=== PATIENT | male | born 1980 | race Two or more races ===

== ENCOUNTER 2024-02-10 22:00 | Inpatient (IN) | payer MEDICAID, SELFPAY ==
[2024-02-10 22:01] VITALS: BMI 37.2
--- NOTE | 2024-02-10 22:08 | XR_ITS ---
Examination: Foot, right, 3 views Technique: AP, oblique, lateral views foot, 3 views Date and time of exam: February 10, 2024 1013 hrs. Indications: Sepsis alert, infection redness swelling and pain right first digit 3 months Findings: Marked soft tissue swelling about the first digit Cortical bone destruction at the base of the distal phalanx first digit with widening of the interphalangeal joint No fracture Tiny opacities plantar to the interphalangeal joint first digit and between the soft tissue proximal phalanges first and second digit Impression: Osteomyelitis distal phalanx first digit Suggest MRI foot without contrast follow-up
--- NOTE | 2024-02-10 22:08 | PD.EDRME ---
Rapid Medical Screening Exam RME Arrival date/time: 02/10/24 22:00 43M with no known significant PMH (though blood sugar here was 397 4 years ago) presents to ED with chronic open wound on R foot. Chief Complaint: Skin/Abscess/Foreign Body
[2024-02-10 22:11] VITALS: BP 163/103; PULSE 123; RESP 20; TEMP 39.2; O2SAT 99
--- NOTE | 2024-02-10 22:13 | PC.NURSE ---
sepsis alert called
[2024-02-10 22:22] VITALS: TEMP 39.2
[2024-02-10] MEDS: ACETAMINOPHEN 500 MG TABLET 1000 MG PO (22:22)
[2024-02-10] MEDS: SODIUM CHLORIDE 0.9% 1000 ML 1,000 ML 999 ML IV (22:35)
[2024-02-10 22:53] LABS: Lactate (Lactic Acid) 3.3 mMol/L (0.4-2.0)
[2024-02-10 22:55] LABS: Basophils % (Auto) 0 % (0-2.5); Eosinophils # (Auto) 0.1 Thou/mm3 (0.0-0.5); Eosinophils % (Auto) 1 % (0-10); Hematocrit 35.1 % (41.0-53.0); Hemoglobin 11.6 g/dL (13.5-16.0); Immature Granulocytes % (Auto) 0 % (0-0); Immature Granulocytes Auto 0.03 Thou/mm3 (0.00-0.00); Lymphocytes # (Auto) 1.1 Thou/mm3 (1.0-4.8); Lymphocytes % (Auto) 12 % (10-50); Mean Corpuscular Hemoglobin 27.3 pg (25.0-35.0); Mean Corpuscular Volume 83 fL (80-100); Monocytes # (Auto) 0.4 Thou/mm3 (0.0-0.8); Monocytes % (Auto) 5 % (0-12); Neutrophils # (Auto) 7.8 Thou/mm3 (1.8-7.7); Neutrophils % (Auto) 82 % (37-80); Nucleated Red Blood Cell % 0 /100 WBC (0); Platelet Count 314 Thou/mm3 (140-440); RDW Standard Deviation 39.2 fL (35.1-43.9); Red Blood Count 4.25 Miln/mm3 (4.50-5.90); White Blood Count 9.4 Thou/mm3 (3.8-10.6)
--- NOTE | 2024-02-10 22:55 | EDNOTE_ITS ---
ED Skin Abcess FB-RME/HPI General Chief complaint: Skin/Abscess/Foreign Body Stated complaint: OPEN WOUND RIGHT BIG TOE Time Seen by Provider: 02/10/24 22:48 Arrival date/time: 02/10/24 22:00 RME / HPI RME / HPI narrative: 02/10/24 22:00 43M with no known significant PMH (though blood sugar here was 397 4 years ago) presents to ED with chronic open wound on R foot. ---- Dr. Montes's Main ED Evaluation: 43yo male with pmhx HTN, DM presents to the ED for a chief complaint of an open wound to his right foot. Patient states he's had a chronic wound to his right foot, reporting it recently started opening, an d having drainage and swelling. He reports having a fever and chills. Denies any N/V/D, dysuria or any other associated symptoms. No known allergies. Related Data Home Medications ?Medication ?Instructions ?Recorded ?Confirmed No Known Home Medications 07/14/19 02/11/24 Allergies Allergy/AdvReac Type Severity Reaction Status Date / Time No Known Allergies Allergy Verified 02/11/24 02:53 Review of Systems Review of Systems Systems Reviewed: All systems reviewed, normal except as documented Past Medical History Past Medical History NEUROLOGIC: Positive Neurological Disorders (Vertigo) CARDIAC: Positive Hypertension; Negative Congestive Heart Failure RESPIRATORY: Negative Chronic Obstructive Pulmonary Disease (COPD) GENITOURINARY: Negative Renal Disease ENDOCRINE: Positive Diabetes Mellitus Type 2; Negative Diabetes Mellitus Type 1 Social History SMOKING STATUS: Never smoker ED Exam Narrative Physical exam: GENERAL APPEARANCE: alert and oriented x 4, well-developed, well-nourished, no acute distress VITALS: All vitals were reviewed and the pulse ox is 99% on room air, which is normal according to my interpretation. HEENT: Normocephalic, atraumatic; pupils equal, round, reactive to light; EOMI; mucous membranes pink, moist; oropharynx clear NECK: Supple LUNGS: CTABL; no wheezes, no rales, no rhonchi HEART: Regular rate, regular rhythm; normal S1, S2; no murmurs ABDOMEN: non distended; normal BS; soft, no tenderness, no guarding, no rebound; no masses, no organomegaly, no hernia BACK: no CVA tenderness EXTREMITIES: atraumatic; no edema NEUROLOGIC: awake; alert and oriented x4; cranial nerves II-XII grossly intact; no focal sensory or motor deficits PSYCHIATRIC: appropriate mood and affect SKIN: warm, dry, normal color; no rashes Course Course Course Narrative: 2212: Sepsis alert initiated. Orders made at this time are congruent with ED Adult Sepsis Order List. Re-evaluation is to be completed. 2234: NS IVF started. 2355: Sepsis reassessment performed consisting of lab review, vitals, physical exam including auscultation of heart, lungs, and visual evaluation of capillary refills, mucosal membranes and extremities. Quality Measures Possible source: bone/joint, skin/soft tissue and wound Blood cultures ordered: yes Antibiotic ordered: Yes Pertinent labs: 02/10/24 22:38 Lactic Acid 3.3 H mMol/L (0.4-2.0) Procalcitonin 0.05 ng/ml (0.0-0.49) sepsis Orders Category Date Time Status Insert IV NOW Care 02/10/24 22:13 Active XR foot comp RT min 3V Stat Exams 02/10/24 22:08 Completed A1C [Glycohemoglobin w (eAG)] Stat Lab 02/10/24 22:38 Completed Blood Culture (Lab) Stat Lab 02/10/24 22:38 Received CBC Stat Lab 02/10/24 22:38 Completed CMP [Comprehensive Metabolic Panel] Stat Lab 02/10/24 22:38 Completed CRP [C-Reactive Protein] Stat Lab 02/10/24 22:38 Completed ESR [Sed Rate (ESR)] Stat Lab 02/10/24 22:38 Completed Lactate (Lactic Acid) Stat Lab 02/10/24 22:38 Completed Procalcitonin Stat Lab 02/10/24 22:38 Completed Acetaminophen Tab [Tylenol ES Tab] Med 02/10/24 22:13 Discontinued 1,000 mg PO X1 ONE Piper/Tazo 3.375 gm [Zosyn] Med 02/10/24 22:49 Discontinued 3.375 gm in 50 ml IV X1 Sodium Chloride 0.9% 1000 ml [Ns] 1,000 ml Med 02/10/24 22:13 Discontinued IV 999 mls/hr Vancomycin Inj 1,000 mg Med 02/10/24 22:49 Discontinued Sodium Chloride 0.9% 250 ml [Ns] 250 ml IV X1 Vital Signs Vital signs: Vital Signs Temperature 102.5 F H 02/10/24 22:11 Pulse Rate 123 H 02/10/24 22:11 Respiratory Rate 20 02/10/24 22:11 Blood Pressure 163/103 H 02/10/24 22:11 Pulse Oximetry (%) 99 02/10/24 22:11 Oxygen Delivery Method Room Air 02/10/24 22:11 Skin / Abscess / Foreign Body Patient data External records reviewed:: [facility] previous records (Per chart review, patient has no relevant previous ED visits or admissions to this facility.) Clinical information provided by:: patient Social determinants that could affect healthcare access:: none Patient has the following chronic illnesses:: HTN, DM How is presenting disease/condition affected by chronic disease/condition?: exacerbated by Evaluation data The following diagnostics were reviewed and interpreted by me:: lab results and radiology exam(s) Lab and/or radiology exams considered but not ordered:: none Interpretation Summary: WBC count is normal at 9.4, Lactate is elevated at 3.3, Glucose is elevated at 353, A1C is elevated at 12.4, CRP is elevated at 4.1, Procalcitonin is normal at 0.5, Sed Rate is elevated at 103, according to my interpretation. ---- [facility] Report Signed Patient: BRANDEN TRUJILLO Record#: [id number] Birthdate: 1980 Age/Sex: 43 / M Location: [facility] Attending Dr: Ordering Physician: Ishmael Ramos PA-C Date of Service: 02/10/24 Procedure(s): XR foot comp RT min 3V Accession Number(s): [id number] cc: Jay Figueroa MD; Ishmael Ramos PA-C~ Examination: Foot, right, 3 views Technique: AP, oblique, lateral views foot, 3 views Date and time of exam: February 10, 2024 1013 hrs. Indications: Sepsis alert, infection redness swelling and pain right first digit 3 months Findings: Marked soft tissue swelling about the first digit Cortical bone destruction at the base of the distal phalanx first digit with widening of the interphalangeal joint No fracture Tiny opacities plantar to the interphalangeal joint first digit and between the soft tissue proximal phalanges first and second digit Impression: Osteomyelitis distal phalanx first digit Suggest MRI foot without contrast follow-up Dictated By: Jay Figueroa MD Signed By: <Electronically signed by Jay Figueroa MD in OV> 02/10/24 2342 Foot x-ray interpreted by me: Bony destruction distal phalanx first toe, soft tissue swelling, soft tissue defect Medications / Prescriptions Medications or Prescriptions considered but not ordered:: none Medication administrations:: Medication Administration History Acetaminophen (Acetaminophen 325 Mg Tablet) 650 mg PO Q6H PRN PRN Reason: Fever >101.5 Stop: 03/12/24 00:18 Hydrocodone Bitart/Acetaminophen (Hydrocodone/Apap 5/325 Tablet) 1 tab PO Q4HR PRN PRN Reason: PAIN SCALE 4-6 (Moderate Stop: 02/16/24 00:18 Amlodipine Besylate (Amlodipine Besylate 5 Mg Tablet) 10 mg PO QDAY [facility] Stop: 03/12/24 08:59 Dextrose (Dextrose 50%-Water Inj 50 Ml Syringe) 25 ml IV Q15MIN PRN PRN Reason: BG 50-70 responsive npo pt Stop: 03/12/24 00:21 Dextrose (Dextrose 50%-Water Inj 50 Ml Syringe) 50 ml IV Q15MIN PRN PRN Reason: BG <50 OR BG <70 & pt unresponsive Stop: 03/12/24 00:21 Enoxaparin Sodium (Enoxaparin Sod Inj 40 Mg/0.4 Ml Syringe) 40 mg SC QDAY [facility] Stop: 02/25/24 08:59 Glucagon (Glucagon Inj 1 Mg Vial) 1 mg IM Q15MIN PRN PRN Reason: BG <70, and no IV access Sodium Chloride (Ns) 1,000 mls @ 75 mls/hr IV .[id number] [facility] Stop: 03/12/24 00:29 Last Admin: 02/11/24 03:20 Dose: 75 mls/hr Documented By: Infusion: 02/11/24 03:20 Dose: Infused Documented By: Admin: 02/11/24 01:06 Dose: 75 mls/hr Documented By: GHASSAN Piperacillin/Tazobactam/Dextrose (Zosyn) 3.375 gm in 50 mls @ 12.5 mls/hr IV Q8HR [facility] Stop: 02/18/24 05:59 Insulin Glargine (Insulin Glargine (Lantus) 5 Unit/0.05 Ml (Per 5 Units)) 20 unit SC QDAY [facility] Stop: 03/12/24 08:59 Insulin Human Regular (Insulin Hum Regular 1 Unit/0.01 Ml (Per Unit)) 0 unit SC ACHS [facility]; Protocol Stop: 03/12/24 07:29 Pharmacy Consult (Pharmacy To Dose Vancomycin) 1 each IV QDAY [facility] Stop: 03/12/24 08:59 Discontinued Medications Acetaminophen (Acetaminophen 500 Mg Tablet) 1,000 mg PO X1 ONE Stop: 02/10/24 22:14 Last Admin: 02/10/24 22:22 Dose: 1,000 mg Documented By: GHASSAN Sodium Chloride (Ns) 1,000 mls @ 999 mls/hr IV .Q1H1M ONE Stop: 02/10/24 23:13 Last Infusion: 02/10/24 23:26 Dose: Infused Documented By: Admin: 02/10/24 22:35 Dose: 999 mls/hr Documented By: GHASSAN Vancomycin HCl 1,000 mg/ (Sodium Chloride) 250 mls @ 250 mls/hr IV X1 ONE Stop: 02/10/24 23:48 Last Infusion: 02/11/24 00:30 Dose: Infused Documented By: Admin: 02/10/24 23:26 Dose: 250 mls/hr Documented By: GHASSAN Piperacillin/Tazobactam/Dextrose (Zosyn) 3.375 gm in 50 mls @ 100 mls/hr IV X1 ONE Stop: 02/10/24 23:18 Last Infusion: 02/10/24 23:26 Dose: Infused Documented By: Admin: 02/10/24 22:56 Dose: 100 mls/hr Documented By: GHASSAN Influenza Virus Vaccine Quadrival (Influenza Virus Quadrivalent 0.5 Ml Syringe) 0.5 ml IMi .ONCE ONE Stop: 02/11/24 02:57 see above Consultations Consultation(s) initiated? (list below): Yes Consultation #1 (Physician, Specialty, Details): Discussed case with [Dr. Rojas] from Hospitalist service regarding admission. Discussed patients ED course, exam findings, labs, and radiology results. The Hospitalist [agrees] to accept the patient for admission. Diagnosis Skin/Abscess Differential Diagnosis: cellulitis and other (abscess, osteomyelitis, fracture) Most likely diagnosis given after review of the tests above:: as below Admission Indicated Admission indicated?: indicated Admission Request Was there a request for admission?: Yes Admission Attestation Admission request attestation: Discussed case with [] from Hospitalist service regarding admission. Discussed patients ED course, exam findings, labs, and radiology results. The Hospitalist [agrees,declines] to accept the patient for admission. Disposition Plan Disposition Plan: Admit Critical Care Time Critical Care Time Critical Care Time: Yes Total Critical Care Time (min.): 45 Attestation: The high probability of sudden, clinically significant deterioration in the patient?s condition required the highest level of my preparedness to intervene urgently. The services I provided to this patient were to treat and/or prevent clinically significant deterioration. Services included the following: chart data review, reviewing nursing notes and/or old charts, documentation time, tanning consultant collaboration regarding findings and treatment options, medication orders and management, direct patient care, vital sign assessments and ordering, interpreting and reviewing diagnostic studies and lab tests. Aggregate critical care time includes only time during which I was engaged in work directly related to the patient?s care, as described above, whether at bedside or elsewhere in the Emergency Department. It did not include time spent performing other reported procedures or the services of residents, students, nurses or physician assistants. Discharge Plan Plan Patient Disposition: Admit Acute Care w/in Hospital Disposition Comment: Dr. Rojas - [facility] Problem List Clinical Impression: Osteomyelitis, Diabetic foot ulcer
[2024-02-10] MEDS: PIPER/TAZO 3.375 GM 3.375 GM/50 ML BAG IV (22:56)
[2024-02-10] MEDS: Vancomycin Inj 1,000 MG in SODIUM CHLORIDE 0.9% 250 ML 250 ML 250 MG IV (23:26)
[2024-02-10 23:28] LABS: Sed Rate (ESR) 103 mm/hr (0-15)
[2024-02-10 23:29] VITALS: BP 152/96; PULSE 109; RESP 19; TEMP 37.4; O2SAT 97
[2024-02-10 23:48] LABS: Procalcitonin 0.05 ng/ml (0.0-0.49)
[2024-02-11] VITALS (11 sets, daily range): BP systolic 123–165; BP diastolic 89–107; PULSE 71–96; RESP 16–20; TEMP 36.1–37.1; O2SAT 94–98; BMI 34.8; BMI 34.9
[2024-02-11 00:04] LABS: Glucose Estimated Average 309 mg/dL (80-131); Hemoglobin A1C 12.4 % Hgb (4.8-6.0)
[2024-02-11 00:10] LABS: Alanine Aminotransferase 12 U/L (10-49); Albumin, Serum 3.9 gm/dL (3.5-5.0); Albumin/Globulin Ratio 0.9 (1.2-2.2); Alkaline Phosphatase 105 U/L (46-116); Anion Gap 7 (7-16); Aspartate Amino Transferase 15 U/L (0-34); BUN/Creatinine Ratio 14 Ratio (12-20); Bilirubin,Total 0.3 mg/dL (0.3-1.2); Blood Urea Nitrogen 15 mg/dL (9-23); C-Reactive Protein 4.1 mg/dL (0.0-0.9); Calcium 9.5 mg/dL (8.3-10.6); Calcium (Corrected) 9.6 mg/dL (8.5-10.1); Carbon Dioxide 24.2 mMol/L (20.0-31.0); Chloride 98 mMol/L (98-107); Creatinine (Component) 1.1 mg/dL (0.6-1.3); Estimated Creatinine Clearance 105.8 mL/min (>60); Globulin 4.5 gm/dL (2.3-3.5); Glucose 353 mg/dL (74-106); Osmolality,Calculated 273 (275-295); Potassium 4.1 mMol/L (3.4-5.1); Sodium 129 mMol/L (136-145); Total Protein 8.4 gm/dL (5.7-8.2); eGFR > 60 See Note
[2024-02-11] MEDS: SODIUM CHLORIDE 0.9% 1000 ML 1,000 ML 75 ML IV ×2 (01:06→03:20)
--- NOTE | 2024-02-11 01:14 | PC.NURSE ---
Pt given snacks and water. Tolerating well.
--- NOTE | 2024-02-11 01:15 | PD.RESHP ---
Documentation for date of: 02/11/24 HPI History of Present Illness History of present illness: 43-year-old male patient with significant medical history for hypertension came into ED for right foot pain. Patient states that he had chronic right foot ulcer since last year which had started to heal. In August patient started having ingrown toenail which was taken out after which patient started having inflammation of the right toe. Patient had gone to [facility] at that time and was given amoxicillin for a week which she completed. Patient never recovered from the swelling and over the last 30 days has progressed and started having discharges and increased pain leading to patient come to the ED. Patient has also been endorsing in the last few days subjective fever and chills which she was attributing it to his work around the house. Patient denied nausea, vomiting, diarrhea, dysuria, chest pain or other associate symptoms. In ED patient was found to be hypertensive with BP 163/103, tachycardic with a pulse of 123 and febrile with a temperature of 102.5 F. CBC was significant for Hgb 11.6, HCT 35.1 and MCV 83. Labs indicated NA 129, ESR 103, glucose 353, Hgb A1c of 12.4% (patient states that he did not know he had diabetes until today), lactic acid 3.3, CRP 4.1 and negative procalcitonin of 0.05. Foot x-ray indicated osteomyelitis distal phalanx first digit. Patient was given fluids per sepsis protocol, started on Vanco and Zosyn and will be admitted for osteomyelitis. Medical Hx: Hypertension Medications: ? Lisinopril Surgeries: None Allergies: None Social Hx: Social alcohol drinker, current tobacco chewing, smokes marijuana and meth (last use 1 month ago) CODE STATUS: Full code Review of Systems Review of Systems Systems Reviewed: All systems reviewed, normal except as documented Exam Vital Signs Temp Pulse Resp BP Pulse Ox O2 Del Method 99.4 F 95 18 147/90 H 98 Room Air 02/10/24 23:29 02/11/24 01:09 02/11/24 01:09 02/11/24 01:09 02/11/24 01:09 02/11/24 01:09 Narrative Exam Constitutional: Well-developed, well-nourished, in no acute distress, lying in bed. HEENT: NCAT, EOMI, reactive round pupils b/l, patent nares b/l, moist mucous membranes . Lung: CTAB, no wheezing, no rhonchi. Heart: Regular S1S2, no murmurs, gallops, or rubs. Abdomen: Soft, obese, non-tender, bowel sounds present throughout. Extremities: No cyanosis, clubbing, right foot edema up to ankle, diminished LE pulses present b/l. Neurologic: No focal sensory or motor deficits noted, AOx3, appropriate affect. Skin: Right diabetic foot ulcer at plantar aspect with discharges and erythema of first digit, dorsal aspect of first right digit gangrenous looking. Results: Labs 02/10/24 22:38 02/10/24 22:38 Labs: Short CBC 02/10/24 Range/Units 22:38 WBC 9.4 (3.8-10.6) Thou/mm3 Hgb 11.6 L (13.5-16.0) g/dL Hct 35.1 L (41.0-53.0) % Plt Count 314 (140-440) Thou/mm3 BMP 02/10/24 22:38 Sodium 129 L Potassium 4.1 Chloride 98 Carbon Dioxide 24.2 BUN 15 Creatinine 1.1 Glucose 353 H Calcium 9.5 Liver Function 02/10/24 Range/Units 22:38 Total Bilirubin 0.3 (0.3-1.2) mg/dL AST 15 (0-34) U/L ALT 12 (10-49) U/L Alkaline Phosphatase 105 (46-116) U/L Albumin 3.9 (3.5-5.0) gm/dL Quality Measures Quality Measures sepsis Current suspected stage: sepsis Possible source: bone/joint Blood cultures ordered: yes Antibiotic ordered: Yes Medications Home Medications and Allergies Home Medications ?Medication ?Instructions ?Recorded ?Confirmed ?Type No Known Home Medications 07/14/19 07/14/19 History Allergies Allergy/AdvReac Type Severity Reaction Status Date / Time No Known Allergies Allergy Verified 07/14/19 14:38 Visit Medications Acetaminophen (Acetaminophen 325 Mg Tablet) 650 mg PO Q6H PRN PRN Reason: Fever >101.5 Stop: 03/12/24 00:18 Hydrocodone Bitart/Acetaminophen (Hydrocodone/Apap 5/325 Tablet) 1 tab PO Q4HR PRN PRN Reason: PAIN SCALE 4-6 (Moderate Stop: 02/16/24 00:18 Amlodipine Besylate (Amlodipine Besylate 5 Mg Tablet) 10 mg PO QDAY [facility] Stop: 03/12/24 08:59 Dextrose (Dextrose 50%-Water Inj 50 Ml Syringe) 25 ml IV Q15MIN PRN PRN Reason: BG 50-70 responsive npo pt Stop: 03/12/24 00:21 Dextrose (Dextrose 50%-Water Inj 50 Ml Syringe) 50 ml IV Q15MIN PRN PRN Reason: BG <50 OR BG <70 & pt unresponsive Stop: 03/12/24 00:21 Enoxaparin Sodium (Enoxaparin Sod Inj 40 Mg/0.4 Ml Syringe) 40 mg SC QDAY [facility] Stop: 02/25/24 08:59 Glucagon (Glucagon Inj 1 Mg Vial) 1 mg IM Q15MIN PRN PRN Reason: BG <70, and no IV access Sodium Chloride (Ns) 1,000 mls @ 75 mls/hr IV .[id number] [facility] Stop: 03/12/24 00:29 Last Admin: 02/11/24 01:06 Dose: 75 mls/hr Piperacillin/Tazobactam/Dextrose (Zosyn) 3.375 gm in 50 mls @ 12.5 mls/hr IV Q8HR [facility] Stop: 02/18/24 05:59 Insulin Glargine (Insulin Glargine (Lantus) 5 Unit/0.05 Ml (Per 5 Units)) 20 unit SC QDAY [facility] Stop: 03/12/24 08:59 Insulin Human Regular (Insulin Hum Regular 1 Unit/0.01 Ml (Per Unit)) 0 unit SC [facility]; Protocol Stop: 03/12/24 07:29 Pharmacy Consult (Pharmacy To Dose Vancomycin) 1 each IV QDAY [facility] Stop: 03/12/24 08:59 Discontinued Medications Acetaminophen (Acetaminophen 500 Mg Tablet) 1,000 mg PO X1 ONE Stop: 02/10/24 22:14 Last Admin: 02/10/24 22:22 Dose: 1,000 mg Sodium Chloride (Ns) 1,000 mls @ 999 mls/hr IV .Q1H1M ONE Stop: 02/10/24 23:13 Last Infusion: 02/10/24 23:26 Dose: Infused Vancomycin HCl 1,000 mg/ (Sodium Chloride) 250 mls @ 250 mls/hr IV X1 ONE Stop: 02/10/24 23:48 Last Infusion: 02/11/24 00:30 Dose: Infused Piperacillin/Tazobactam/Dextrose (Zosyn) 3.375 gm in 50 mls @ 100 mls/hr IV X1 ONE Stop: 02/10/24 23:18 Last Infusion: 02/10/24 23:26 Dose: Infused Assessment & Plan Plan 43-year-old male patient with significant medical history for hypertension came into ED for right foot pain. Patient found to be diabetic with A1c of 12.4, elevated ESR and CRP and x-ray indicative of right first digit osteomyelitis. #Sepsis due to #Osteomyelitis #Cellulitis #Diabetic foot ulcer Patient with hemoglobin A1c of 12.4% with chronic right foot ulcer Vitals and labs significant for fever 102.5 F, ESR 103, CRP 4.1, lactic acid 3.3 On admission patient complaining of erythema, discharge, swelling and pain X-ray indicated of osteomyelitis Patient given IVF fluids bolus per sepsis protocol in ED Plan: ? Start Vanco and Zosyn ? MRI of right foot ordered ? General Surgeon Dr. Wheatley consulted, recommendations are greatly appreciated ? Wound care ordered ? Maintenance IVF at 75 cc/h ? Acetaminophen for fever and pain ? Blood cultures ordered ? Follow-up CBC #Uncontrolled diabetes, newly diagnosed #Hyperglycemia On admission patient with blood glucose of 309 and A1c of 12.4% Plan: ? Start insulin glargine 20 units daily ? Start sliding scale insulin plus Accu-Cheks ? Diabetic education ? Maintain blood glucose of 140-180 ? Patient will benefit from CGM ? Lipid panel and TSH ordered ? Follow-up CMP #Hypertension Patient states he has hypertension but is noncompliant with his medication On admission patient with BP 163/103 Plan: ? Start amlodipine 10 mg daily Health Maintenance Dispo: Patient admitted for osteomyelitis, MRI ordered, general surgeon consulted Diet: Low carb consistent DVT/PPx: Lovenox GI ppx: None Lines: PIV Code Status: Full code This patient care was discussed with my attending Dr. Bob Cooley MD PGY-2 Disclaimer: Minor errors in regional ehs manager may be present since this note was dictated by speech recognition software. Attending Provider Attestation/Addendum Pt was evaluated and plan formulated together with the housestaff team. I have reviewed the residents note above and agree with most of its content. Please refer to the residents note for additional details.
[2024-02-11 01:51] LABS: Reflex Lactate? Y
[2024-02-11 02:07] LABS: Lactic Acid, 3 HR 1.2 mMol/L (0.4-2.0)
[2024-02-11 05:29] LABS: Basophils % (Auto) 0 % (0-2.5); Eosinophils # (Auto) 0.1 Thou/mm3 (0.0-0.5); Eosinophils % (Auto) 2 % (0-10); Hematocrit 32.1 % (41.0-53.0); Hemoglobin 10.5 g/dL (13.5-16.0); Immature Granulocytes % (Auto) 0 % (0-0); Immature Granulocytes Auto 0.02 Thou/mm3 (0.00-0.00); Lymphocytes # (Auto) 1.9 Thou/mm3 (1.0-4.8); Lymphocytes % (Auto) 23 % (10-50); Mean Corpuscular HGB Conc 32.7 g/dl (31.0-37.0); Mean Corpuscular Hemoglobin 27.1 pg (25.0-35.0); Mean Corpuscular Volume 83 fL (80-100); Monocytes # (Auto) 0.8 Thou/mm3 (0.0-0.8); Monocytes % (Auto) 9 % (0-12); Neutrophils # (Auto) 5.4 Thou/mm3 (1.8-7.7); Neutrophils % (Auto) 65 % (37-80); Nucleated Red Blood Cell % 0 /100 WBC (0); Platelet Count 267 Thou/mm3 (140-440); RDW Standard Deviation 39.4 fL (35.1-43.9); Red Blood Count 3.88 Miln/mm3 (4.50-5.90); White Blood Count 8.2 Thou/mm3 (3.8-10.6)
[2024-02-11 05:46] LABS: Anion Gap 4 (7-16); BUN/Creatinine Ratio 15 Ratio (12-20); Blood Urea Nitrogen 12 mg/dL (9-23); Calcium 8.8 mg/dL (8.3-10.6); Carbon Dioxide 28.9 mMol/L (20.0-31.0); Cardiac Risk Estimate 3.8 RATIO (4.0-6.7); Chloride 99 mMol/L (98-107); Cholesterol 88 mg/dL (132-200); Creatinine (Component) 0.8 mg/dL (0.6-1.3); Glucose 350 mg/dL (74-106); HDL Cholesterol 23 mg/dL (40-60); LDL Cholesterol,Calculated 46 mg/dL (0-130); Osmolality,Calculated 278 (275-295); Potassium 3.7 mMol/L (3.4-5.1); Sodium 132 mMol/L (136-145); Thyroid Stimulating Hormone 2.81 uIU/mL (0.55-4.78); Triglycerides 97 mg/dL (30-150); eGFR > 60 See Note
[2024-02-11] MEDS: PIPER/TAZO 3.375 GM 3.375 GM/50 ML BAG IV (05:59)
[2024-02-11] MEDS: INSULIN HUM REGULAR 1 UNIT/0.01 ML (PER UNIT) SC (07:16)
[2024-02-11] MEDS: VANCOMYCIN/D5W 1,250 MG IVPB 250 ML 120 MG IV ×3 (07:54→21:31)
[2024-02-11] MEDS: INSULIN GLARGINE (Lantus) 5 UNIT/0.05 ML (PER 5 UNITS) 20 UNIT SC ×2 (08:00→20:38)
[2024-02-11] MEDS: ENOXAPARIN SOD INJ 40 MG/0.4 ML SYRINGE SC (08:00)
[2024-02-11] MEDS: amLODIPine BESYLATE 5 MG TABLET 10 MG PO (08:00)
--- NOTE | 2024-02-11 11:18 | PC.SS ---
Follow up note: Pt is on IV antibiotic. Pt will return home upon dc.
[2024-02-11] MEDS: INSULIN LISPRO (AdmeLOG) 1 UNIT/0.01 ML UNIT SC ×3 (11:38→20:38)
--- NOTE | 2024-02-11 12:09 | XR_ITS ---
Examination: Ultrasound-guided needle placement right brachial vein. Dual-lumen central line placement (PICC line). Fluoroscopy AP chest, portable, single view Exam date and time:February 11, 2024 1339 hours INDICATIONS: Need for long-term intravenous antibiotic therapy for osteomyelitis A timeout was completed verifying correct patient, procedure, site, positioning Informed consent provided Technique: The patient's site was prepped and draped in sterile fashion. Maximum Sterile Barrier Technique used including cap, mask, sterile gown, sterile gloves, and sterile full body drape. If ultrasound technique used: sterile gel and sterile probe covers. Hand Hygiene performed using proper scrub, soap and water, or alcohol-based hand rub. Site right portable apparatus utilized to confirm patency of the right brachial vein Utilizing ultrasonographic guidance successful 21-gauge needle puncture into the right brachial vein. Ultrasound images recorded and stored. 5 cc 1% lidocaine administered for local anesthetic. Successful micropuncture with a 21-gauge needle is performed. 0.18 wire guide is then introduced into the SVC under fluoroscopic guidance. Dual-lumen catheter dilator is then introduced, followed by the catheter in the SVC and proper position under fluoroscopic guidance. Successful aspiration of blood and flushing with heparinized saline is then performed in the 2 venous limbs. The catheter sutured in place. Findings: Under fluoroscopy, the tip of the catheter is in good position in the vena cava. Portable chest x-ray, post line placement is ordered. Estimated blood loss 3 cc The patient tolerated the procedure well and was in stable and satisfactory condition at completion of the procedure Impression: Successful ultrasound-guided needle placement right brachial vein Successful placement of dual lumen central line, percutaneous Fluoroscopy 0.2 minutes radiation dose 2.29 milligray 1 spot fluoroscopic chest film. AP chest completion procedure demonstrates satisfactory position central line. May use central line.
--- NOTE | 2024-02-11 12:28 | ESCONSULT_ITS ---
HPI Consult details Consult date: 02/11/24 Reason for consultation narrative: Right first toe osteomyelitis History of present illness: 43-year-old male with poorly controlled diabetes has had chronic ulceration of right foot at the lateral aspect of first toe. Patient states that ulceration has been healing lately. However, he has developed an ingrown nail that he cath after which he started developing swelling, tenderness and erythema of right first toe. X-ray revealed osteomyelitis. Patient was started on IV antibiotics and admitted for further management. Review of Systems Constitutional Constitutional: Denies chills and Denies fever(s) Cardiovascular Cardiovascular: Denies chest pain Respiratory Respiratory: Denies cough Gastrointestinal Gastrointestinal: Denies abdominal pain, Denies nausea and Denies vomiting Hematologic/Lymphatic Hematologic/Lymphatic: Denies easy bleeding and Denies easy bruising Past Medical History Surgical History OTHER SURGICAL HX: No surgeries in the past Social History SMOKING STATUS: Never smoker SUBSTANCE USE: does not use ALCOHOL: Current Meds Home Medications and Allergies Home Medications ?Medication ?Instructions ?Recorded ?Confirmed ?Type No Known Home Medications 07/14/19 02/11/24 History Allergies Allergy/AdvReac Type Severity Reaction Status Date / Time No Known Allergies Allergy Verified 02/11/24 02:53 Exam Vital Signs Temp Pulse Resp BP Pulse Ox O2 Del Method 97.6 F 79 19 144/98 H 97 Room Air 02/11/24 12:00 02/11/24 12:00 02/11/24 12:00 02/11/24 12:00 02/11/24 12:00 02/11/24 12:00 Constitutional Constitutional: no acute distress Routine Extremities Exam Comments: He has palpable dorsalis pedis and posterior tibial pulses. He has significant edema and mild erythema of right first toe. There is no evidence of fluctuance or purulent drainage at this time Assessment & Plan Problem List (1) Osteomyelitis of toe of right foot: Status: Acute Plan Options including amputation of right first toe versus antibiotic treatment discussed with the patient. He wishes to defer surgery and proceed with antibiotic treatment. I recommended following with a precision jig grinder upon discharge
[2024-02-11] MEDS: CEFEPIME INJ 2 GM in SODIUM CHLORIDE 0.9% (P) 50 ML IV ×2 (12:43→21:29)
--- NOTE | 2024-02-11 13:15 | PC.NURSE ---
Pt.out for Picc line insertion.
[2024-02-11] MEDS: HEPARIN SOD LOCK SYR 100 UNIT/ML 500 UNIT STFIELD (14:11)
[2024-02-11] MEDS: LIDOCAINE INJ PF 1% 30 ML VIAL INFL (14:12)
--- NOTE | 2024-02-11 14:39 | PC.NURSE ---
Addendum entered by Tori Preston RN 02/11/24 15:07: procedure in time:1355 Time Out: 1411 Start time: 1412 End time 117. Original Note: patient tolerated picc line insertion well. a double lumen picc line on the right branchial vein 43cm in length inserted. vitals stable. report given to charline jackson. dressing clean dry and intact.
--- NOTE | 2024-02-11 15:06 | PC.SS ---
SS met with patient regarding his d/c plan. Pt is alert/oriented. Pt was admitted for Oteomyelitis. Pt confirmed demographic and contact information is correct on facesheet. Pt resides with his uncles. Pt ambulates independently without assistance or DME. Pt is ok with all ADLs. Patient?s pharmacy of choice is [facility] [address]. Pt named his sister, Kristie Cisneros medical decision maker if he is unable. Patient?s choice is to return home upon d/c. Pt does not have an advance directive, SS offered, and pt declined. Pt states he is diabetic but does not have glucometer/test strips. Pt states he followed up with [facility] last year. DC plan: Return home Next of Kin: Kristie Cisneros, sister, phone# [phone] PCP: [facility] Address: Correct on facesheet
--- NOTE | 2024-02-11 15:37 | PC.SS ---
Pt is requiring a PICC line for IV antibiotics for 8 weeks.
--- NOTE | 2024-02-11 15:48 | PC.CM ---
pt. will needs 8 weeks of abbx. Entered the pt on [facility]. Need md orders.
--- NOTE | 2024-02-11 18:27 | ESPR_ITS ---
<Statement entered by Kraig Kaplan MD - 02/11/24 20:23> I was present for the essential components of the history, physical examination, diagnosis, and treatment plan with the resident. I have reviewed the documentation, discussed the case with the resident and agree with the patient's care as documented by the resident. Kraig Kaplan MD <Statement entered by Joe Hartman MD - 02/11/24 18:34> I saw and examined the patient, and I agree with current management stated by Dr Colin MD,PGY1. Plan of care was discussed with the attending physician and resident physician. Disclaimer: Despite multiple revisions, due to the dictation software being used, the document bellow may not be free of grammatical errors including phonetic/typographic errors. However, this does not deter from our commitment to providing health care in the patient's best interest in mind. Dr. Devan MD, PGY 2 Documentation for date of: 02/11/24 Subjective Subjective Interval history: Pt examined at bedside today, and is doing okay. Says he is having some foot pain and swelling. Is open to having some surgical debridement of wound but does not want to have amputation of toe/foot. Is also agreeable with IV abx treatment. Exam Vital Signs Temp Pulse Resp BP Pulse Ox O2 Del Method 97.9 F 89 19 136/97 H 96 Room Air 02/11/24 16:00 02/11/24 16:00 02/11/24 16:00 02/11/24 16:00 02/11/24 16:00 02/11/24 16:00 Narrative Exam Constitutional: Well-developed, well-nourished, in no acute distress, lying in bed. HEENT: NCAT, EOMI, reactive round pupils b/l, patent nares b/l, moist mucous membranes . Lung: CTAB, no wheezing, no rhonchi. Heart: Regular S1S2, no murmurs, gallops, or rubs. Abdomen: Soft, obese, non-tender, bowel sounds present throughout. Extremities: No cyanosis, clubbing, right foot edema up to ankle, diminished LE pulses present b/l. Neurologic: No focal sensory or motor deficits noted, AOx3, appropriate affect. Skin: Right diabetic foot ulcer at plantar aspect with discharges and erythema of first digit, dorsal aspect of first right digit gangrenous looking. Objective Labs 02/11/24 04:41 02/11/24 04:41 Labs: Laboratory Results - last 24 hr 02/10/24 02/11/24 02/11/24 22:38 02:00 04:41 WBC 9.4 8.2 RBC 4.25 L 3.88 L Hgb 11.6 L 10.5 L Hct 35.1 L 32.1 L MCV 83 83 MCH 27.3 27.1 MCHC 33.0 32.7 RDW Std Deviation 39.2 39.4 Plt Count 314 267 D Neut % (Auto) 82 H 65 Lymph % (Auto) 12 23 [place] % (Auto) 5 9 Eos % (Auto) 1 2 Baso % (Auto) 0 0 Neut # (Auto) 7.8 H 5.4 Lymph # (Auto) 1.1 1.9 [place] # (Auto) 0.4 0.8 Eos # (Auto) 0.1 0.1 Baso # (Auto) 0.0 0.0 Immature Gran # (Auto) 0.03 H 0.02 H Absolute Nucleated RBC 0.00 0.00 Immature Gran % 0 0 Nucleated RBC % 0 0 ESR 103 H Sodium 129 L 132 L Potassium 4.1 3.7 Chloride 98 99 Carbon Dioxide 24.2 28.9 Anion Gap 7 4 L BUN 15 12 Creatinine 1.1 0.8 Estim Creat Clear Calc 105.8 145.0 eGFR > 60 > 60 BUN/Creatinine Ratio 14 15 Glucose [address] Glu mg/dL 309 H Hemoglobin A1c 12.4 H Calculated Osmolality 273 L 278 Lactic Acid 3.3 H 1.2 Calcium 9.5 8.8 Corrected Calcium 9.6 Total Bilirubin 0.3 AST 15 ALT 12 Alkaline Phosphatase 105 C-Reactive Prot, Quant 4.1 H Total Protein 8.4 H Albumin 3.9 Globulin 4.5 H Albumin/Globulin Ratio 0.9 L Triglycerides 97 Cholesterol 88 L LDL Cholesterol, Calc 46 HDL Cholesterol 23 L Cholesterol/HDL Ratio 3.8 L Procalcitonin 0.05 TSH 2.81 Quality Measures Quality Measures sepsis Current suspected stage: sepsis Possible source: bone/joint, skin/soft tissue and wound Blood cultures ordered: yes Antibiotic ordered: Yes Assessment & Plan Assessment Current Active Medications: Generic Name Dose Route Start Last Admin Trade Name Freq PRN Reason Stop Dose Admin Acetaminophen 650 mg 02/11/24 00:19 Acetaminophen 325 Mg Tablet PO 03/12/24 00:18 Q6H PRN Fever >101.5 Hydrocodone Bitart/Acetaminophen 1 tab 02/11/24 00:19 Hydrocodone/Apap 5/325 Tablet PO 02/16/24 00:18 Q4HR PRN PAIN SCALE 4-6 (Moderate Amlodipine Besylate 10 mg 02/11/24 09:00 02/11/24 08:00 Amlodipine Besylate 5 Mg Tablet PO 03/12/24 08:59 10 mg QDAY ALMA DELIA Administration Dextrose 25 ml 02/11/24 00:22 Dextrose 50%-Water Inj 50 Ml Syringe IV 03/12/24 00:21 Q15MIN PRN BG 50-70 responsive npo pt Dextrose 50 ml 02/11/24 00:22 Dextrose 50%-Water Inj 50 Ml Syringe IV 03/12/24 00:21 Q15MIN PRN BG <50 OR BG <70 & pt unresponsive Enoxaparin Sodium 40 mg 02/11/24 09:00 02/11/24 08:00 Enoxaparin Sod Inj 40 Mg/0.4 Ml Syringe SC 02/25/24 08:59 40 mg QDAY ALMA DELIA Administration Glucagon 1 mg 02/11/24 00:22 Glucagon Inj 1 Mg Vial IM Q15MIN PRN BG <70, and no IV access Sodium Chloride 1,000 mls @ 75 mls/hr 02/11/24 00:30 02/11/24 03:20 Ns IV 03/12/24 00:29 75 mls/hr .[id number] ALMA DELIA Administration Vancomycin HCl/Dextrose 250 mls @ 120 mls/hr 02/11/24 07:30 02/11/24 15:01 Vancomycin/D5w 1,250 Mg Ivpb IV 02/18/24 07:29 120 mls/hr Q8HR ALMA DELIA Administration Protocol Cefepime HCl 2 gm/ Sodium 50 mls @ 100 mls/hr 02/11/24 12:25 02/11/24 14:04 Chloride IV 03/24/24 12:24 Not Given Q8HR ALMA DELIA Insulin Glargine 20 unit 02/11/24 21:00 Insulin Glargine (Lantus) 5 Unit/0.05 Ml (Per 5 Units) SC 03/12/24 20:59 HS ALMA DELIA Insulin Human Lispro 0 unit 10/04/24 11:30 02/11/24 16:53 Insulin Lispro (Admelog) 1 Unit/0.01 Ml Unit SC 03/12/24 11:29 2 unit A[facility]S [facility] Administration Protocol Pharmacy Consult 1 each 02/11/24 09:00 Pharmacy To Dose Vancomycin IV 03/12/24 08:59 QDAY PRN CONSULT Plan Plan 43-year-old male patient with significant medical history for hypertension came into ED for right foot pain. Patient found to be diabetic with A1c of 12.4, elevated ESR and CRP and x-ray indicative of right first digit osteomyelitis. #Sepsis due to #Osteomyelitis #Cellulitis #Diabetic foot ulcer Patient with hemoglobin A1c of 12.4% with chronic right foot ulcer Vitals and labs significant for fever 102.5 F, ESR 103, CRP 4.1, lactic acid 3.3 On admission patient complaining of erythema, discharge, swelling and pain X-ray indicated of osteomyelitis Patient given IVF fluids bolus per sepsis protocol in ED Pt does not want amptuation at this time Wants IV antibiotics and mild surgical intervention including debridement MRI not needed at this time as Xray shows OM Plan: ? PICC line insertion ? Continue with Vanco and cefepime ? General Surgeon Dr. Wheatley consulted, recommendations are greatly appreciated ? Risk and benefits discussed with patient in regards to treatment antibiotics versus surgical intervention ? Wound care ordered ? Stopped Maintenance IVF at 75 cc/h given patient is tolerating diet well ? Acetaminophen for fever and pain ? Blood cultures ordered ? Follow-up CBC #Uncontrolled diabetes, newly diagnosed #Hyperglycemia On admission patient with blood glucose of 309 and A1c of 12.4% Plan: ? Insulin glargine 20 units daily ? Sliding scale insulin plus Accu-Cheks ? Diabetic education ? Maintain blood glucose of 140-180 ? Patient will benefit from CGM ? Lipid panel and TSH ordered ? Follow-up CMP #Hypertension Patient states he has hypertension but is noncompliant with his medication On admission patient with BP 163/103 Plan: ? Start amlodipine 10 mg daily #Health Maintenance Dispo: Med/Surg Diet: Low carb consistent DVT/PPx: Lovenox GI ppx: None Lines: PIV Code Status: Full code This patient care was discussed with my attending Dr. Kaplan, and my senior resident, Dr. Devan Shaw, PGY-1
[2024-02-12] VITALS (7 sets, daily range): BP systolic 126–142; BP diastolic 90–103; PULSE 85–98; RESP 14–18; TEMP 36.3–37; O2SAT 96–99
[2024-02-12] MEDS: CEFEPIME INJ 2 GM in SODIUM CHLORIDE 0.9% (P) 50 ML IV ×3 (05:13→21:37)
[2024-02-12 06:36] LABS: Basophils % (Auto) 1 % (0-2.5); Eosinophils # (Auto) 0.2 Thou/mm3 (0.0-0.5); Eosinophils % (Auto) 4 % (0-10); Hematocrit 36.9 % (41.0-53.0); Immature Granulocytes % (Auto) 0 % (0-0); Immature Granulocytes Auto 0.01 Thou/mm3 (0.00-0.00); Lymphocytes # (Auto) 1.5 Thou/mm3 (1.0-4.8); Lymphocytes % (Auto) 26 % (10-50); Mean Corpuscular HGB Conc 32.5 g/dl (31.0-37.0); Mean Corpuscular Hemoglobin 26.9 pg (25.0-35.0); Mean Corpuscular Volume 83 fL (80-100); Monocytes # (Auto) 0.4 Thou/mm3 (0.0-0.8); Monocytes % (Auto) 8 % (0-12); Neutrophils # (Auto) 3.7 Thou/mm3 (1.8-7.7); Neutrophils % (Auto) 62 % (37-80); Nucleated Red Blood Cell % 0 /100 WBC (0); Platelet Count 296 Thou/mm3 (140-440); RDW Standard Deviation 39.6 fL (35.1-43.9); Red Blood Count 4.46 Miln/mm3 (4.50-5.90); White Blood Count 5.9 Thou/mm3 (3.8-10.6)
[2024-02-12 06:56] LABS: INR 1.1 (0.9-1.3); Partial Thromboplastin Time 27.9 Seconds (22.0-36.0); Prothrombin Time 11.7 Seconds (9.0-12.2)
[2024-02-12 07:08] LABS: Anion Gap 4 (7-16); BUN/Creatinine Ratio 17 Ratio (12-20); Blood Urea Nitrogen 12 mg/dL (9-23); Calcium 9.5 mg/dL (8.3-10.6); Carbon Dioxide 31.9 mMol/L (20.0-31.0); Chloride 99 mMol/L (98-107); Creatinine (Component) 0.7 mg/dL (0.6-1.3); Glucose 190 mg/dL (74-106); Osmolality,Calculated 274 (275-295); Potassium 3.8 mMol/L (3.4-5.1); Sodium 135 mMol/L (136-145); Vancomycin,Trough 13.8 mcg/mL (5.0-10.0); eGFR > 60 See Note
[2024-02-12] MEDS: VANCOMYCIN/D5W 1,250 MG IVPB 250 ML 120 MG IV (07:31)
[2024-02-12] MEDS: ENOXAPARIN SOD INJ 40 MG/0.4 ML SYRINGE SC (08:07)
[2024-02-12] MEDS: amLODIPine BESYLATE 5 MG TABLET 10 MG PO (08:08)
[2024-02-12] MEDS: INSULIN LISPRO (AdmeLOG) 1 UNIT/0.01 ML UNIT SC ×4 (09:17→20:07)
--- NOTE | 2024-02-12 11:43 | PC.DIETICIAN ---
Nutrition Education (new onset diabetes; A1C=12.4): Patient was educated on dietary management of diabetes; written material in Turkish was provided for future reference. *Consider prescribing a [employer] Seng 2 sensor + [place] prior to discharge.
[2024-02-12] MEDS: INSULIN GLARGINE (Lantus) 5 UNIT/0.05 ML (PER 5 UNITS) SC (11:46)
--- NOTE | 2024-02-12 13:08 | ESDS_ITS ---
<Statement entered by Kraig Kaplan MD - 02/13/24 08:36> I was present for the essential components of the history, physical examination, diagnosis, and treatment plan with the resident. I have reviewed the documentation, discussed the case with the resident and agree with the patient's care as documented by the resident. Discharge time 38 mins. Kraig Kaplan MD <Statement entered by Krystal Vasquez MD - 02/12/24 21:31> Patient was seen and examined at bedside. I agree on most of the assessment and plan on this note. - Patient's plan and care discussed with my attending, Dr. Eusebio Vasquez MD Internal Medicine PGY-2 Planned Discharge Date 02/12/24 DS: Providers Provider Date of admission: 02/11/24 00:19 Primary care physician: WERO Ambrose MD Admitting Provider: Will Rojas MD Attending Provider on Admission: Kraig Kaplan MD Consults: 02/11/24 00:53 Consult to General Surgery Stat Comment: Osteo Consulting Provider: Lora Wheatley 02/11/24 01:58 Referral Registered Dietitian Routine Comment: 02/11/24 04:51 Referral Wound Care Routine Comment: right great toe dm ulcer 02/12/24 11:52 Referral Physical Therapy Urgent Comment: Physician Instructions: Attending Provider on DC: Krystal Vasquez MD Discharging Provider: Krystal Vasquez MD DS: Diagnosis Problem List Completed Was Problem List Reviewed/Reconciled?: Yes Hospital Course Hospital Course Hospital course: 43-year-old male with past medical his hypertension who was admitted on February 11, 2024 for right foot osteomyelitis located on the first phalanx associated with toe swelling. Patient had been experiencing some swelling, ulceration and drainage for the past several months. He had recently went to the [facility] and was given amoxicillin which had helped him at the time and this was done in August. Over the past month his foot had worsened in noticed worsening discharge in his foot which prompted him to come to the ED. In the ED he was worked up and was found to be septic with a blood pressure of 163/103, tachycardic with a pulse of 123, and febrile with a temperature of 102.5. He was found to have a hemoglobin 11.6 sodium 129, glucose of 353, and A1c 12.4 in which she was diagnosed at the time with diabetes mellitus, lactate 3.3, CRP of 4.1. Foot x-ray showed osteomyelitis of the distal first phalanx. Patient was started on Vanco and Zosyn and was given fluids for sepsis protocol was admitted to the floors. While on the floors patient was educated on diabetes management, had his sugars managed and continued antibiotics. General surgery was consulted who had explained options of surgical intervention versus IV antibiotics for his osteomyelitis. The patient opted to pursue IV antibiotics for 6 weeks with a PICC line to treat osteomyelitis. Patient had PICC line put in and was instructed to continue antibiotics of Rocephin which is IV, and Doxy which is by mouth, until March 24, 2024. Patient was recommended to follow-up with PCP. Patient was also instructed on how to use insulin for newly diagnosed diabetes. Dietitian had also seen the patient in given instructions on diabetes supplies. Follow-up with PCP within 1 week Weekly labs to monitor infection need to be done Continue antibiotics for 6 weeks, IV antibiotics arranged with home health and to take oral antibiotic Continue to take care of diabetes with diabetes education through primary team, nurses, dietitian Continue with hypertensive management with new medicines #Sepsis due to #Osteomyelitis #Cellulitis #Diabetic foot ulcer #Uncontrolled diabetes, newly diagnosed #Hyperglycemia #Hypertension Patient seen and care discussed with my senior resident, Dr. Vasquez, and my attending physician, Dr. Eusebio Shaw, PGY-1 Time Spent with Patient Time attestation: Total time spent providing and/or coordinating discharge services: Time spent: Greater than 30 minutes Home Health Home Health Referral Orders: 02/12/24 10:27 Home Health Referral Routine Reason For Exam: needs 6 weeks of IV rocephin 2 grams IV daily Home-Bound The patient must either because of illness or injury, need the aid of supportive devices such as crutches, canes, wheelchairs, and walkers; the use of special transportation; or the assistance of another person in order to leave their place of residence; OR have a condition such that leaving his or her home is medically contraindicated. In addition, the patient also meets the following criteria: patient is normally unable to leave the home and leaving home requires considerable taxing effort. Addendum to Home Health Certification Practitioner's Certification: I certify that the patient has been under my care in the hospital and the care of attending physician (see below). We had a uswd-gy-ypho encounter on (see date below). My clinical findings indicate that the patient is home bound per the above criteria and the Home Health Services noted in these orders are medically necessary. The primary reason for the ckae-po-hchi encounter is related to the fact that the patient requires home health services. Date Certifying Fueg-td-Wjeh Physician Encounter: 02/11/24 Physician's Name who will Assume Oversight for Services: Evan Ambrose Physician's Phone No.who will Assume Oversight for Service: FISCAL ASSISTANT - Community Resources: No PT to Evaluate: No PT to evaluate and provide a treatmnet plan to increase patient's mobility and strength. Wound Care: Yes Home Health RN - Wound Care Order: RIGHT FOOT DAILY - SEE NURSING ORDERS IV Therapy: Yes IV Medication: CEFTRIAXONE IV Dose: 2 GRAMS IV Frequency: DAILY IV Stop Date: 03/24/24 Discontinue PICC Line Once Treatment Complete: Yes RN Safety Evaluation: Yes RN to evaluate and create a plan of care that will produce positive outcomes. Palliative Treatment: No Palliative treatment and evaluate the need for hospice. Home Health Aide - Personal Care: No Home Health Aide to assist with any ADL's. Exam Vital Signs Temp Pulse Resp BP Pulse Ox O2 Del Method 97.7 F 87 17 126/90 H 97 Room Air 02/12/24 12:00 02/12/24 12:00 02/12/24 12:00 02/12/24 12:00 02/12/24 12:00 02/12/24 12:00 Narrative Exam Constitutional: Well-developed, well-nourished, in no acute distress, lying in bed. HEENT: NCAT, EOMI, reactive round pupils b/l, patent nares b/l, moist mucous membranes . Lung: CTAB, no wheezing, no rhonchi. Heart: Regular S1S2, no murmurs, gallops, or rubs. Abdomen: Soft, obese, non-tender, bowel sounds present throughout. Extremities: No cyanosis, clubbing, right foot edema up to ankle, diminished LE pulses present b/l. Neurologic: No focal sensory or motor deficits noted, AOx3, appropriate affect. Skin: Right diabetic foot ulcer at plantar aspect with discharges and erythema of first digit, dorsal aspect of first right digit gangrenous looking. Discharge Plan Plan Patient Disposition: Home w/HOME HEALTH Disposition Comment: Dr. Rojas - Marquez Abreu Patient condition on transfer: Stable and Benefits outweigh risks Prescriptions/Referrals Prescriptions/Med Rec: New acetaminophen 325 mg Tablet 325 mg PO Q6H PRN (Reason: Fever >101.5 or mild pain) Qty: 30 0RF hydrocodone-acetaminophen 5-325 mg Tablet 1 tab PO Q6H MDD 15 mg PRN (Reason: Pain Scale 4-6 (Moderate) 3 Days Qty: 10 0RF insulin aspart U-100 100 unit/mL (3 mL) insulin pen 4 unit subcut TID Qty: 15 0RF insulin glargine U-300 conc 300 unit/mL (1.5 mL) insulin pen 25 unit subcut QDAY Qty: 4.5 1RF (DME) blood-glucose meter [Accu-Chek Guide Me Glucose Mtr] Misc See Rx Instructions .Route Qty: 1 0RF Rx Instructions: As directed (DME) lancets [Acti-Jonathan Lancets] 28 gauge misc See Rx Instructions .Route Qty: 100 0RF Rx Instructions: As directed alcohol swabs [Alcohol Prep Pads] Pads, Medicated See Rx Instructions .ROUTE .COMPLEX Qty: 100 0RF Rx Instructions: apply 3 times a day before blood sugar check and before injecting insulin (DME) Accu-Chek Guide test strips Strip See Rx Instructions .Route Qty: 100 0RF Rx Instructions: As directed 3 Times a day amlodipine 10 mg tablet 10 mg PO QDAY Qty: 30 0RF (DME) FreeStyle Seng 2 [place] Misc See Rx Instructions .Route Qty: 1 0RF Rx Instructions: As directed (DME) FreeStyle Seng 2 Sensor Kit See Rx Instructions .Route Qty: 1 0RF Rx Instructions: As directed Referrals: Evan Cabrales MD [Primary Care Provider] - Patient/Caregiver Discharge Instructions Discharge Activity: as per physical therapy Other Discharge Activity Instructions:: Wound care: DM soft tissue infection to right great toe including great/2nd toe webs: cleanse well with Wound cleanser. Express exudate as able. Cover with dry gauze including inbetween toes. Layer with dry gauze and secure with kerlix roll. Change twice a day and PRN for falling off or soiling. Follow up with Your with your primary care physician within 1 week from discharge if you did not have any primary care physician you can follow-up with us at the [facility] at [address] [place] [address] [place] [address] , from Wednesday to Wednesday from 8 AM to 4 PM. Follow-up on your weekly labs to monitor the resolution of the infection He will be prescribed IV antibiotic in addition to oral antibiotic to treat your bone infection In case o any medical emergency please return to the emergency department as soon as possible Use medications as prescribed He will be prescribed insulin injections to control your blood sugar as you newly diagnosed with diabetes mellitus. It is very important to use the insulin as prescribed as it may have some risk of low blood sugar which resulted in serious complications. Education Materials: Insulin Aspart injection, C-Reactive Protein (Blood), Glargine Insulin Pen 300 units/mL, Osteomyelitis Dc, Diabetes Carbs Fats Protein, Diabetes: Ways to Take Medicine, Healthy Cooking Tips for People with Diabetes Print Language: Hebrew Stand Alone Forms: [facility] Award Info., Patient Portal Info Letter Discharge Order Discharge Orders: Discharge (Routine); Ordered 02/12/24 Ordered By: Krystal Vasquez Quality Discharge Quality Measures VTE prophylaxis (Lovenox )
[2024-02-12] MEDS: Vancomycin Inj 1,500 MG in SODIUM CHLORIDE 0.9% 500 ML 500 ML 200 MG IV ×2 (14:27→21:36)
--- NOTE | 2024-02-12 14:44 | PC.CM ---
HH referral sent on [facility] to HH agencies and Infusion company. Awaiting responses. Pending Start of care date.
--- NOTE | 2024-02-12 15:30 | PC.NURSE ---
Pt has discharge orders in, pt currently not safe/ready to discharge, pending home health acceptance for IV antibiotics.
--- NOTE | 2024-02-12 15:55 | PC.SS ---
SS confirmed pt needs to have IV ABX for discharge and set up with HH; SS provided update with Nurse.
[2024-02-12] MEDS: INSULIN GLARGINE (Lantus) 5 UNIT/0.05 ML (PER 5 UNITS) 25 UNIT SC (20:07)
[2024-02-13] VITALS (7 sets, daily range): BP systolic 121–160; BP diastolic 81–102; PULSE 72–100; RESP 17–18; TEMP 36.2–36.6; O2SAT 94–97
[2024-02-13] MEDS: Vancomycin Inj 1,500 MG in SODIUM CHLORIDE 0.9% 500 ML 500 ML 200 MG IV ×3 (05:04→22:42)
[2024-02-13] MEDS: CEFEPIME INJ 2 GM in SODIUM CHLORIDE 0.9% (P) 50 ML IV ×3 (05:05→21:34)
[2024-02-13 05:54] LABS: Basophils % (Auto) 1 % (0-2.5); Eosinophils # (Auto) 0.2 Thou/mm3 (0.0-0.5); Eosinophils % (Auto) 4 % (0-10); Hematocrit 36.7 % (41.0-53.0); Immature Granulocytes % (Auto) 0 % (0-0); Immature Granulocytes Auto 0.01 Thou/mm3 (0.00-0.00); Lymphocytes # (Auto) 1.7 Thou/mm3 (1.0-4.8); Lymphocytes % (Auto) 31 % (10-50); Mean Corpuscular HGB Conc 32.7 g/dl (31.0-37.0); Mean Corpuscular Hemoglobin 27.1 pg (25.0-35.0); Mean Corpuscular Volume 83 fL (80-100); Monocytes # (Auto) 0.5 Thou/mm3 (0.0-0.8); Monocytes % (Auto) 9 % (0-12); Neutrophils % (Auto) 56 % (37-80); Nucleated Red Blood Cell % 0 /100 WBC (0); Platelet Count 281 Thou/mm3 (140-440); RDW Standard Deviation 39.8 fL (35.1-43.9); Red Blood Count 4.43 Miln/mm3 (4.50-5.90); White Blood Count 5.4 Thou/mm3 (3.8-10.6)
[2024-02-13 06:11] LABS: Anion Gap 4 (7-16); BUN/Creatinine Ratio 21 Ratio (12-20); Blood Urea Nitrogen 15 mg/dL (9-23); Carbon Dioxide 29.9 mMol/L (20.0-31.0); Chloride 101 mMol/L (98-107); Creatinine (Component) 0.7 mg/dL (0.6-1.3); Glucose 206 mg/dL (74-106); Osmolality,Calculated 276 (275-295); Potassium 3.9 mMol/L (3.4-5.1); Sodium 135 mMol/L (136-145); eGFR > 60 See Note
--- NOTE | 2024-02-13 07:25 | PC.CM ---
[facility] accepted the pt. Booked [facility]. So far 8 HH agencies declined the pt. No accepting HH agency as of now.
[2024-02-13] MEDS: ENOXAPARIN SOD INJ 40 MG/0.4 ML SYRINGE SC (07:40)
[2024-02-13] MEDS: amLODIPine BESYLATE 5 MG TABLET 10 MG PO (07:41)
[2024-02-13] MEDS: INSULIN LISPRO (AdmeLOG) 1 UNIT/0.01 ML UNIT SC ×4 (07:41→20:51)
[2024-02-13] MEDS: INSULIN GLARGINE (Lantus) 5 UNIT/0.05 ML (PER 5 UNITS) 8 UNIT SC (11:38)
--- NOTE | 2024-02-13 11:57 | ESPR_ITS ---
<Statement entered by Kraig Kaplan MD - 02/14/24 01:42> I was present for the essential components of the history, physical examination, diagnosis, and treatment plan with the resident. I have reviewed the documentation, discussed the case with the resident and agree with the patient's care as documented by the resident. Kraig Kaplan MD Documentation for date of: 02/13/24 Subjective Subjective Interval history: Patient was seen and examined at the bedside. He reported to have mild foot pain and no other active concerns. No acute overnight events reported. general warehouse worker reported that patient will probably stay until Wednesday due to pending home health services. All labs and orders were reviewed. Exam Vital Signs Temp Pulse Resp BP Pulse Ox O2 Del Method 97.2 F 75 18 160/92 H 95 Room Air 02/13/24 07:59 02/13/24 07:59 02/13/24 07:59 02/13/24 07:59 02/13/24 07:59 02/13/24 07:59 Narrative Exam Constitutional: Well-developed, well-nourished, in no acute distress, lying in bed. HEENT: NCAT, EOMI, reactive round pupils b/l, patent nares b/l, moist mucous membranes . Lung: CTAB, no wheezing, no rhonchi. Heart: Regular S1S2, no murmurs, gallops, or rubs. Abdomen: Soft, obese, non-tender, bowel sounds present throughout. Extremities: No cyanosis, clubbing, right foot edema up to ankle, diminished LE pulses present b/l. Neurologic: No focal sensory or motor deficits noted, AOx3, appropriate affect. Skin: Right diabetic foot ulcer at plantar aspect with discharges and erythema of first digit, dorsal aspect of first right digit gangrenous looking. Objective Labs 02/13/24 05:00 02/13/24 05:00 Labs: Laboratory Results - last 24 hr 02/13/24 05:00 WBC 5.4 RBC 4.43 L Hgb 12.0 L Hct 36.7 L MCV 83 MCH 27.1 MCHC 32.7 RDW Std Deviation 39.8 Plt Count 281 Neut % (Auto) 56 Lymph % (Auto) 31 Terrell % (Auto) 9 Eos % (Auto) 4 Baso % (Auto) 1 Neut # (Auto) 3.0 Lymph # (Auto) 1.7 Terrell # (Auto) 0.5 Eos # (Auto) 0.2 Baso # (Auto) 0.0 Immature Gran # (Auto) 0.01 H Absolute Nucleated RBC 0.00 Immature Gran % 0 Nucleated RBC % 0 Sodium 135 L Potassium 3.9 Chloride 101 Carbon Dioxide 29.9 Anion Gap 4 L BUN 15 Creatinine 0.7 Estim Creat Clear Calc 163.0 eGFR > 60 BUN/Creatinine Ratio 21 H Glucose 206 H Calculated Osmolality 276 Calcium 10.0 Quality Measures Quality Measures VTE prophylaxis (Lovenox ) Assessment & Plan Assessment Current Active Medications: Generic Name Dose Route Start Last Admin Trade Name Freq PRN Reason Stop Dose Admin Acetaminophen 650 mg 02/12/24 23:01 Acetaminophen 325 Mg Tablet PO 03/12/24 00:18 Q6H PRN PAIN OR FEVER > 101 Hydrocodone Bitart/Acetaminophen 1 tab 02/11/24 00:19 Hydrocodone/Apap 5/325 Tablet PO 02/16/24 00:18 Q4HR PRN PAIN SCALE 4-6 (Moderate Amlodipine Besylate 10 mg 02/11/24 09:00 02/13/24 07:41 Amlodipine Besylate 5 Mg Tablet PO 03/12/24 08:59 10 mg QDAY ALMA DELIA Administration Dextrose 25 ml 02/11/24 00:22 Dextrose 50%-Water Inj 50 Ml Syringe IV 03/12/24 00:21 Q15MIN PRN BG 50-70 responsive npo pt Dextrose 50 ml 02/11/24 00:22 Dextrose 50%-Water Inj 50 Ml Syringe IV 03/12/24 00:21 Q15MIN PRN BG <50 OR BG <70 & pt unresponsive Enoxaparin Sodium 40 mg 02/11/24 09:00 02/13/24 07:40 Enoxaparin Sod Inj 40 Mg/0.4 Ml Syringe SC 02/25/24 08:59 40 mg QDAY ALMA DELIA Administration Glucagon 1 mg 02/11/24 00:22 Glucagon Inj 1 Mg Vial IM Q15MIN PRN BG <70, and no IV access Cefepime HCl 2 gm/ Sodium 50 mls @ 100 mls/hr 02/11/24 12:25 02/13/24 05:05 Chloride IV 03/24/24 12:24 100 mls/hr Q8HR ALMA DELIA Administration Vancomycin HCl 1,500 mg/ 500 mls @ 200 mls/hr 02/12/24 14:00 02/13/24 05:04 Sodium Chloride IV 02/19/24 13:59 200 mls/hr Q8HR [facility] Administration Protocol Insulin Glargine 34 unit 02/13/24 21:00 Insulin Glargine (Lantus) 5 Unit/0.05 Ml (Per 5 Units) SC 03/14/24 20:59 HS [facility] Insulin Human Lispro 0 unit 02/13/24 10:51 02/13/24 11:38 Insulin Lispro (Admelog) 1 Unit/0.01 Ml Unit SC 03/12/24 11:29 8 unit ACHS [facility] Administration Protocol Pharmacy Consult 1 each 02/11/24 09:00 Pharmacy To Dose Vancomycin IV 03/12/24 08:59 QDAY PRN CONSULT Plan 43-year-old male patient with significant medical history for hypertension came into ED for right foot pain. Patient found to be diabetic with A1c of 12.4, elevated ESR and CRP and x-ray indicative of right first digit osteomyelitis. Failed discharge and pending home health services. #Sepsis due to #Osteomyelitis #Cellulitis #Diabetic foot ulcer Patient with hemoglobin A1c of 12.4% with chronic right foot ulcer Vitals and labs significant for fever 102.5 F, ESR 103, CRP 4.1, lactic acid 3.3 On admission patient complaining of erythema, discharge, swelling and pain X-ray indicated of osteomyelitis Patient given IVF fluids bolus per sepsis protocol in ED Pt does not want amptuation at this time Wants IV antibiotics and mild surgical intervention including debridement MRI not needed at this time as Xray shows OM Plan: ? Pending home health services ? PICC line insertion ? Continue with Vanco and cefepime until 03/22 ? General Surgeon Dr. Wheatley consulted, recommendations are greatly appreciated ? Risk and benefits discussed with patient in regards to treatment antibiotics versus surgical intervention ? Wound care ordered ? Acetaminophen for fever and pain ? Blood cultures negative ? Follow-up CBC #Uncontrolled diabetes, newly diagnosed #Hyperglycemia On admission patient with blood glucose of 309 and A1c of 12.4% Plan: ? Insulin Lantus 8 units given x 1 ? Increased insulin glargine 34 units daily ? Resistant sliding scale insulin plus Accu-Cheks ? Diabetic education ? Maintain blood glucose of 140-180 ? Patient will benefit from CGM ? Lipid panel and TSH ordered ? Follow-up CMP #Hypertension Patient states he has hypertension but is noncompliant with his medication On admission patient with BP 163/103 Plan: ? Start amlodipine 10 mg daily #Health Maintenance Dispo: Med/Surg Diet: Low carb consistent DVT/PPx: Lovenox GI ppx: None Lines: PIV Code Status: Full code -- Patient was seen and discussed with attending physician, Dr.Crudo Joe Hartman, PGY 2
[2024-02-13 14:10] LABS: Vancomycin,Trough 16.8 mcg/mL (5.0-10.0)
[2024-02-13] MEDS: INSULIN GLARGINE (Lantus) 5 UNIT/0.05 ML (PER 5 UNITS) 34 UNIT SC (20:52)
[2024-02-14] VITALS: BP 148/83; PULSE 93; RESP 17; TEMP 36.4; O2SAT 97
[2024-02-14 04:00] VITALS: BP 126/89; PULSE 92; RESP 14; TEMP 36.3; O2SAT 96
[2024-02-14] MEDS: CEFEPIME INJ 2 GM in SODIUM CHLORIDE 0.9% (P) 50 ML IV ×2 (05:26→13:23)
[2024-02-14] MEDS: Vancomycin Inj 1,500 MG in SODIUM CHLORIDE 0.9% 500 ML 500 ML 200 MG IV (06:01)
[2024-02-14 06:19] LABS: Anion Gap 4 (7-16); BUN/Creatinine Ratio 19 Ratio (12-20); Blood Urea Nitrogen 15 mg/dL (9-23); Calcium 9.5 mg/dL (8.3-10.6); Carbon Dioxide 29.9 mMol/L (20.0-31.0); Chloride 102 mMol/L (98-107); Creatinine (Component) 0.8 mg/dL (0.6-1.3); Estimated Creatinine Clearance 141.2 mL/min (>60); Glucose 194 mg/dL (74-106); Magnesium 2.1 mg/dL (1.6-2.6); Osmolality,Calculated 277 (275-295); Phosphorous 4.1 mg/dL (2.4-5.1); Potassium 3.6 mMol/L (3.4-5.1); Sodium 136 mMol/L (136-145); eGFR > 60 See Note
[2024-02-14 06:54] LABS: Basophils % (Auto) 1 % (0-2.5); Eosinophils # (Auto) 0.2 Thou/mm3 (0.0-0.5); Eosinophils % (Auto) 3 % (0-10); Hematocrit 38.1 % (41.0-53.0); Hemoglobin 12.1 g/dL (13.5-16.0); Immature Granulocytes % (Auto) 1 % (0-0); Immature Granulocytes Auto 0.03 Thou/mm3 (0.00-0.00); Lymphocytes # (Auto) 1.8 Thou/mm3 (1.0-4.8); Lymphocytes % (Auto) 30 % (10-50); Mean Corpuscular HGB Conc 31.8 g/dl (31.0-37.0); Mean Corpuscular Hemoglobin 26.7 pg (25.0-35.0); Mean Corpuscular Volume 84 fL (80-100); Monocytes # (Auto) 0.5 Thou/mm3 (0.0-0.8); Monocytes % (Auto) 9 % (0-12); Neutrophils # (Auto) 3.4 Thou/mm3 (1.8-7.7); Neutrophils % (Auto) 57 % (37-80); Nucleated Red Blood Cell % 0 /100 WBC (0); Platelet Count 309 Thou/mm3 (140-440); RDW Standard Deviation 40.5 fL (35.1-43.9); Red Blood Count 4.54 Miln/mm3 (4.50-5.90)
[2024-02-14 08:00] VITALS: BP 146/92; PULSE 84; RESP 18; TEMP 36.6; O2SAT 97
[2024-02-14] MEDS: INSULIN LISPRO (AdmeLOG) 1 UNIT/0.01 ML UNIT SC ×2 (08:07→12:17)
[2024-02-14 08:08] VITALS: BP 146/92; PULSE 84
[2024-02-14] MEDS: amLODIPine BESYLATE 5 MG TABLET 10 MG PO (08:08)
[2024-02-14] MEDS: ENOXAPARIN SOD INJ 40 MG/0.4 ML SYRINGE SC (08:28)
--- NOTE | 2024-02-14 10:06 | PC.SS ---
Follow up note: SS met with pt to discuss d/c options due to requiring IV antibiotic, Rocephin 2grm 1X day until Mar 24, 2024. Pt is refusing SNF and pt is requesting to return home. Pt is adamant he is not going to SNF. Pt states he has not followed up with PCP for about a year. Pt is aware HH Services requires a PCP to follow. Pt is aware not being established with PCP possibly could be a barrier for Home Health Services. SS provided verbal choices for medical clinics and patient's choice is [facility]. Pt is agreeable for SS to make pt an appointment. SS scheduled pt an appointment for Feb 22, [address] Samaniego at [facility].
--- NOTE | 2024-02-14 10:35 | PD.RESPRO ---
Documentation for date of: 02/14/24 Exam Vital Signs Temp Pulse Resp BP Pulse Ox O2 Del Method 97.8 F 84 18 146/92 H 97 Room Air 02/14/24 08:00 02/14/24 08:08 02/14/24 08:00 02/14/24 08:08 02/14/24 08:00 02/14/24 08:00 Narrative Exam Constitutional: Well-developed, well-nourished, in no acute distress, lying in bed. HEENT: NCAT, EOMI, reactive round pupils b/l, patent nares b/l, moist mucous membranes . Lung: CTAB, no wheezing, no rhonchi. Heart: Regular S1S2, no murmurs, gallops, or rubs. Abdomen: Soft, obese, non-tender, bowel sounds present throughout. Extremities: No cyanosis, clubbing, right foot edema up to ankle, diminished LE pulses present b/l. Neurologic: No focal sensory or motor deficits noted, AOx3, appropriate affect. Skin: Right diabetic foot ulcer at plantar aspect with discharges and erythema of first digit, dorsal aspect of first right digit gangrenous looking. Objective Labs 02/14/24 05:11 02/14/24 05:11 Labs: Laboratory Results - last 24 hr 02/13/24 02/14/24 13:11 05:11 WBC 6.0 RBC 4.54 Hgb 12.1 L Hct 38.1 L MCV 84 MCH 26.7 MCHC 31.8 RDW Std Deviation 40.5 Plt Count 309 Neut % (Auto) 57 Lymph % (Auto) 30 Gregg % (Auto) 9 Eos % (Auto) 3 Baso % (Auto) 1 Neut # (Auto) 3.4 Lymph # (Auto) 1.8 Gregg # (Auto) 0.5 Eos # (Auto) 0.2 Baso # (Auto) 0.0 Immature Gran # (Auto) 0.03 H Absolute Nucleated RBC 0.00 Immature Gran % 1 H Nucleated RBC % 0 Sodium 136 Potassium 3.6 Chloride 102 Carbon Dioxide 29.9 Anion Gap 4 L BUN 15 Creatinine 0.8 Estim Creat Clear Calc 141.2 eGFR > 60 BUN/Creatinine Ratio 19 Glucose 194 H Calculated Osmolality 277 Calcium 9.5 Phosphorus 4.1 Magnesium 2.1 Vancomycin Trough 16.8 H Quality Measures Quality Measures VTE prophylaxis (Lovenox ) Assessment & Plan Assessment Current Active Medications: Generic Name Dose Route Start Last Admin Trade Name Jerald PRN Reason Stop Dose Admin Acetaminophen 650 mg 02/12/24 23:01 Acetaminophen 325 Mg Tablet PO 03/12/24 00:18 Q6H PRN PAIN OR FEVER > 101 Hydrocodone Bitart/Acetaminophen 1 tab 02/11/24 00:19 Hydrocodone/Apap 5/325 Tablet PO 02/16/24 00:18 Q4HR PRN PAIN SCALE 4-6 (Moderate Amlodipine Besylate 10 mg 02/11/24 09:00 02/14/24 08:08 Amlodipine Besylate 5 Mg Tablet PO 03/12/24 08:59 10 mg QDAY ALMA DELIA Administration Dextrose 25 ml 02/11/24 00:22 Dextrose 50%-Water Inj 50 Ml Syringe IV 03/12/24 00:21 Q15MIN PRN BG 50-70 responsive npo pt Dextrose 50 ml 02/11/24 00:22 Dextrose 50%-Water Inj 50 Ml Syringe IV 03/12/24 00:21 Q15MIN PRN BG <50 OR BG <70 & pt unresponsive Enoxaparin Sodium 40 mg 02/11/24 09:00 02/14/24 08:28 Enoxaparin Sod Inj 40 Mg/0.4 Ml Syringe SC 02/25/24 08:59 40 mg QDAY ALMA DELIA Administration Glucagon 1 mg 02/11/24 00:22 Glucagon Inj 1 Mg Vial IM Q15MIN PRN BG <70, and no IV access Cefepime HCl 2 gm/ Sodium 50 mls @ 100 mls/hr 02/11/24 12:25 02/14/24 05:26 Chloride IV 03/24/24 12:24 100 mls/hr Q8HR ALMA DELIA Administration Vancomycin HCl 1,500 mg/ 500 mls @ 200 mls/hr 02/12/24 14:00 02/14/24 06:01 Sodium Chloride IV 02/19/24 13:59 200 mls/hr Q8HR ALMA DELIA Administration Protocol Insulin Glargine 40 unit 02/14/24 21:00 Insulin Glargine (Lantus) 5 Unit/0.05 Ml (Per 5 Units) SC 03/15/24 20:59 HS ALMA DELIA Insulin Human Lispro 0 unit 02/13/24 10:51 02/14/24 08:07 Insulin Lispro (Admelog) 1 Unit/0.01 Ml Unit SC 03/12/24 11:29 4 unit ACHS ALMA DELIA Administration Protocol Pharmacy Consult 1 each 02/11/24 09:00 Pharmacy To Dose Vancomycin IV 03/12/24 08:59 QDAY PRN CONSULT Plan Plan 43-year-old male patient with significant medical history for hypertension came into ED for right foot pain. Patient found to be diabetic with A1c of 12.4, elevated ESR and CRP and x-ray indicative of right first digit osteomyelitis. #Sepsis due to #Osteomyelitis #Cellulitis #Diabetic foot ulcer Patient with hemoglobin A1c of 12.4% with chronic right foot ulcer Vitals and labs significant for fever 102.5 F, ESR 103, CRP 4.1, lactic acid 3.3 On admission patient complaining of erythema, discharge, swelling and pain X-ray indicated of osteomyelitis Patient given IVF fluids bolus per sepsis protocol in ED Pt does not want amptuation at this time Wants IV antibiotics and mild surgical intervention including debridement MRI not needed at this time as Xray shows OM Will be discharged on Rocephin and Doxycycline Pending home health authorization at this time Plan: ? Pt has PICC line ? Continue with Vanco and cefepime ? General Surgeon Dr. Wheatley consulted, recommendations are greatly appreciated ? Risk and benefits discussed with patient in regards to treatment antibiotics versus surgical intervention ? Wound care for patient ? Acetaminophen for fever and pain ? Blood cultures NG2D #Uncontrolled diabetes, newly diagnosed #Hyperglycemia On admission patient with blood glucose of 309 and A1c of 12.4% Plan: ? *Insulin glargine 40 units daily ? Sliding scale insulin plus Accu-Cheks ? Diabetic education ? Maintain blood glucose of 140-180 ? Patient will benefit from CGM #Hypertension Patient states he has hypertension but is noncompliant with his medication On admission patient with BP 163/103 Plan: ? Continue amlodipine 10 mg daily #Health Maintenance Dispo: Med/Surg Diet: Low carb consistent DVT/PPx: Lovenox GI ppx: None Lines: PIV Code Status: Full code This patient care was discussed with my attending Dr. Kaplan, and my senior resident, Dr. Devan Shaw, PGY-1
[2024-02-14 12:00] VITALS: BP 153/98; PULSE 95; RESP 18; TEMP 36.4; O2SAT 97
[2024-02-14 14:09] LABS: Vancomycin,Trough 18.6 mcg/mL (5.0-10.0)
--- NOTE | 2024-02-14 15:06 | PC.SS ---
SS has spoken to Tiesha from [facility] who states [facility] has accepted and they can see pt tomorrow for his dose of IV antibiotic at home. Pt will d/c today. Tiesha is aware pt does not have PCP but appointment with PCP has been setup for WednesdayFeb [address] Samaniego at [facility]. SS has provided pt with the new appointment time, is aware to answer his phone, and [facility] will be contacting him. Bedside nurseFrances is aware.
--- NOTE | 2024-02-14 15:08 | PC.CC ---
Addendum entered and electronically signed by Jolene Thompson RPh 02/14/24 15:56: PA for Freestyle Esng 2 sensor, reader approved x 1 year. Updated LINDA Armendariz who advised they will need to order the sensors in, ETA 02/14. Original Note: Met w/ patient at bedside for DM education. Patient is newly diagnosed, has a FHx diabetes and has injection experience with both insulin vials and insulin pens. He feels confident about discharging on basal and mealtime insulin. He identifies his biggest self-management barrier will be meal planning due to lack of knowledge and experience. He reports he will have [facility] services through a friend that also has injection experience. Supplementary education provided on types of insulin, role and use. Emphasized not to skip insulin glargine, but not to take insulin aspart if patient is not eating a meal (patient reports he typically eats only breakfast, sometimes dinner, with snacks in between). Encouraged incorporating healthy nutrition choices and patient was able to verbalize specifics. No additional needs identified at this time.
[2024-02-14 16:00] VITALS: BP 131/90; PULSE 89; RESP 18; TEMP 36.5; O2SAT 98
--- NOTE | 2024-02-14 16:17 | PC.SS ---
SS sent referral to Wound Clinic
--- NOTE | 2024-02-14 17:35 | PC.NURSE ---
Patient was discharged home via private vehicle with home health. Patient was transported to hospital's main entrance via wheelchair by RECEPTION INTERVIEWER. IV was discontinued tolerated well. Discharge instructions were reviewed with patient, understanding verbalized. Patient received diabetes education from team otr truck driver as well. Pt was discharged home with PICC line. Home health already set up by social work job titles. Nursing care ended at this time.
--- NOTE | 2024-02-14 19:52 | ESDS_ITS ---
<Statement entered by Kraig Kaplan MD - 02/14/24 23:28> I was present for the essential components of the history, physical examination, diagnosis, and treatment plan with the resident. I have reviewed the documentation, discussed the case with the resident and agree with the patient's care as documented by the resident. DC time 35 mins Kraig Kaplan MD <Statement entered by Krystal Vasquez MD - 02/14/24 21:18> Patient was seen and examined at bedside. I agree on the assessment and plan for this patient. Planned Discharge Date 02/14/24 DS: Providers Provider Date of admission: 02/11/24 00:19 Primary care physician: WERO Ambrose MD Admitting Provider: Will Rojas MD Attending Provider on Admission: Kraig Kaplan MD Consults: 02/11/24 00:53 Consult to General Surgery Stat Comment: Osteo Consulting Provider: Lora Wheatley 02/11/24 01:58 Referral Registered Dietitian Routine Comment: 02/11/24 04:51 Referral Wound Care Routine Comment: right great toe dm ulcer 02/12/24 11:52 Referral Physical Therapy Urgent Comment: Physician Instructions: Attending Provider on DC: Lorraine Shaw MD Discharging Provider: Lorraine Shaw MD DS: Diagnosis Problem List Completed Was Problem List Reviewed/Reconciled?: Yes Hospital Course Hospital Course Hospital course: 43-year-old male with past medical his hypertension who was admitted on February 11, 2024 for right foot osteomyelitis located on the first phalanx associated with toe swelling. Patient had been experiencing some swelling, ulceration and drainage for the past several months. He had recently went to [facility] and was given amoxicillin which had helped him at the time and this was done in August. Over the past month his foot had worsened in noticed worsening discharge in his foot which prompted him to come to the ED. In the ED he was worked up and was found to be septic with a blood pressure of 163/103, tachycardic with a pulse of 123, and febrile with a temperature of 102.5. He was found to have a hemoglobin 11.6 sodium 129, glucose of 353, and A1c 12.4 in which she was diagnosed at the time with diabetes mellitus, lactate 3.3, CRP of 4.1. Foot x-ray showed osteomyelitis of the distal first phalanx. Patient was started on Vanco and Zosyn and was given fluids for sepsis protocol was admitted to the floors. While on the floors patient was educated on diabetes management, had his sugars managed and continued antibiotics. General surgery was consulted who had explained options of surgical intervention versus IV antibiotics for his osteomyelitis. The patient opted to pursue IV antibiotics for 6 weeks with a PICC line to treat osteomyelitis. Patient had PICC line put in and was instruct ed to continue antibiotics of Rocephin which is IV, and Doxy which is by mouth, until March 24, 2024. Patient was recommended to follow-up with PCP. Patient was also instructed on how to use insulin for newly diagnosed diabetes. Dietitian had also seen the patient in given instructions on diabetes supplies. Pt was supposed to be discharged on 02/11, but was pending insurance and home health insurance approval and was approved on 02/13 for discharge. Pt was discharge with home health for IV abx. Follow-up with PCP within 1 week Weekly labs (ESR, CRP, CMP, CBC) to monitor infection need to be done Continue antibiotics for 6 weeks, IV antibiotics arranged with home health and to take oral antibiotic Continue to take care of diabetes with diabetes education through primary team, nurses, dietitian Continue with hypertensive management with new medicines #Sepsis due to #Osteomyelitis #Cellulitis #Diabetic foot ulcer #Uncontrolled diabetes, newly diagnosed #Hyperglycemia #Hypertension Patient seen and care discussed with my senior resident, Dr. Vasquez, and my attending physician, Dr. Eusebio Shaw, PGY-1 Time Spent with Patient Time attestation: Total time spent providing and/or coordinating discharge services: Time spent: Greater than 30 minutes Exam Vital Signs Temp Pulse Resp BP Pulse Ox O2 Del Method 97.7 F 89 18 131/90 H 98 Room Air 02/14/24 16:00 02/14/24 16:00 02/14/24 16:00 02/14/24 16:00 02/14/24 16:02/14/24 16:00 Narrative Exam Constitutional: Well-developed, well-nourished, in no acute distress, lying in bed. HEENT: NCAT, EOMI, reactive round pupils b/l, patent nares b/l, moist mucous membranes . Lung: CTAB, no wheezing, no rhonchi. Heart: Regular S1S2, no murmurs, gallops, or rubs. Abdomen: Soft, obese, non-tender, bowel sounds present throughout. Extremities: No cyanosis, clubbing, right foot edema up to ankle, diminished LE pulses present b/l. Neurologic: No focal sensory or motor deficits noted, AOx3, appropriate affect. Skin: Right diabetic foot ulcer at plantar aspect with discharges and erythema of first digit, dorsal aspect of first right digit gangrenous looking. Discharge Plan Plan Patient Disposition: Home w/HOME HEALTH Disposition Comment: Dr. Bob Abreu Patient condition on transfer: Stable and Benefits outweigh risks Care Plan Goals: Continue taking all home medication as prescribed Continue IV Rocephin and doxycycline 100 mg daily until March 22, 2024 Weekly CBC, BMP ESR and CRP Follow-up with PCP as outpatient Schedule appointment at [facility] by calling [phone] Take Lantus 25 units daily in the morning Take insulin aspart 4 units 3 times daily Monitor blood sugars in the morning before breakfast and before every meal Prescriptions/Referrals Prescriptions/Med Rec: New acetaminophen 325 mg Tablet 325 mg PO Q6H PRN (Reason: Fever >101.5 or mild pain) Qty: 30 0RF hydrocodone-acetaminophen 5-325 mg Tablet 1 tab PO Q6H MDD 15 mg PRN (Reason: Pain Scale 4-6 (Moderate) 3 Days Qty: 10 0RF insulin aspart U-100 100 unit/mL (3 mL) insulin pen 4 unit subcut TID Qty: 15 0RF (DME) blood-glucose meter [Accu-Chek Guide Me Glucose Mtr] Misc See Rx Instructions .Route Qty: 1 0RF Rx Instructions: As directed (DME) lancets [Acti-Jonathan Lancets] 28 gauge misc See Rx Instructions .Route Qty: 100 0RF Rx Instructions: As directed alcohol swabs [Alcohol Prep Pads] Pads, Medicated See Rx Instructions .ROUTE .COMPLEX Qty: 100 0RF Rx Instructions: apply 3 times a day before blood sugar check and before injecting insulin (DME) Accu-Chek Guide test strips Strip See Rx Instructions .Route Qty: 100 0RF Rx Instructions: As directed 3 Times a day amlodipine 10 mg tablet 10 mg PO QDAY Qty: 30 0RF (DME) FreeStyle Seng 2 [place] Misc See Rx Instructions .Route Qty: 1 0RF Rx Instructions: As directed (DME) FreeStyle Seng 2 Sensor Kit See Rx Instructions .Route Qty: 1 0RF Rx Instructions: As directed doxycycline hyclate 100 mg tablet 100 mg PO BID 40 Days Qty: 80 0RF insulin glargine [Lantus Solostar U-100 Insulin] 100 unit/mL (3 mL) insulin pen 25 unit subcut QAM Qty: 15 0RF Referrals: Evan Cabrales MD [Primary Care Provider] - Patient/Caregiver Discharge Instructions Discharge Activity: as per physical therapy Other Discharge Activity Instructions:: Wound care: DM soft tissue infection to right great toe including great/2nd toe webs: cleanse well with Wound cleanser. Express exudate as able. Cover with dry gauze including in between toes. Layer with dry gauze and secure with kerlix roll. Change twice a day and PRN for falling off or soiling. Follow up with Your with your primary care physician within 1 week from discharge if you did not have any primary care physician you can follow-up with us at the [facility] at [address] [place] [address] [place] [address] , from Wednesday to Wednesday from 8 AM to 4 PM. Follow-up on your weekly labs to monitor the resolution of the infection He will be prescribed IV antibiotic in addition to oral antibiotic to treat your bone infection In case of any medical emergency please return to the emergency department as soon as possible Use medications as prescribed He will be prescribed insulin injections to control your blood sugar as you newly diagnosed with diabetes mellitus. It is very important to use the insulin as prescribed as it may have some risk of low blood sugar which resulted in serious complications. Education Materials: Insulin Aspart injection, C-Reactive Protein (Blood), Glargine Insulin Pen 300 units/mL, Osteomyelitis Dc, Diabetes Carbs Fats Protein, Diabetes: Ways to Take Medicine, Healthy Cooking Tips for People with Diabetes Print Language: Indonesian Stand Alone Forms: [facility] Award Info., Patient Portal Info Letter Discharge Order Discharge Orders: Discharge (Routine); Ordered 02/14/24 Ordered By: Joe Hartman Quality Discharge Quality Measures VTE prophylaxis (Lovenox )
--- NOTE | 2024-02-15 07:48 | PC.CM ---
Addendum entered by Marcial Carlos RN 02/15/24 10:14: HH referral is complete. Addendum entered by Marcial Carlos RN 02/15/24 10:14: sent picc line report to [facility] and [facility]. Addendum entered by Marcial Carlos RN 02/15/24 08:10: checked with [facility], meds were delivered yesterday. Addendum entered by Marcial Carlos RN 02/15/24 07:57: sent updated dc summary to [facility] and [facility]. Addendum entered by Marcial Carlos RN 02/15/24 07:50: Booked Marianne on [employer]. Original Note: Per SS notes SS has spoken to Tiesha from [facility] who states [facility] has accepted and they can see pt tomorrow for his dose of IV antibiotic at home. Pt will d/c today. Tiesha is aware pt does not have PCP but appointment with PCP has been setup for WednesdayFeb [address] Samaniego at [facility]. has provided pt with the new appointment time, is aware to answer his phone, and [facility] will be contacting him. Bedside nurseFrances is aware.
== END 2024-02-14 17:35 | disposition home health service (06) | DRG 344 ==
LOC: SERX 02-11 01:38 → SERHOLD 02-11 01:46 → S3NX 02-11 02:46
PROVIDERS: Internal Medicine; Physician Assistant; Admitting Provider Internal Medicine; Emergency Provider Emergency Medicine; PCP Family Medicine; Visit Provider Internal Medicine
DX: E11.621 Type 2 diabetes mellitus with foot ulcer (principal); E11.69 Type 2 diabetes mellitus with other specified complication; L97.419 Non-pressure chronic ulcer of right heel and midfoot with unspecified severity; M86.171 Other acute osteomyelitis, right ankle and foot; L03.031 Cellulitis of right toe; E11.65 Type 2 diabetes mellitus with hyperglycemia; I10 Essential (primary) hypertension; Z91.148 Patient's other noncompliance with medication regimen for other reason; Z72.0 Tobacco use; Z79.4 Long term (current) use of insulin
CPT/HCPCS: 36415; 73630; 80048; 80053; 80061; 80202; 83036; 83605; 83735; 84100; 84145; 84443; 85025; 85610; 85652; 85730; 86140; 87040; 87081; 96365; 96367; 97161; 99291; C1751; C1894; J0692; J1642; J1650; J1815; J2543; J3370; J3490; J7030; J7040; J7050; A9270